=== PATIENT | female | born 1985 | race Caucasian/White ===

== ENCOUNTER → 2016-11-14 14:40 | Observation (INO) ==
[2016-11-14 13:55] LABS: Basophils % 0.1 %; Eosinophils % 0.4 %; Hemoglobin 11.8 g/dL (11.5-15.4); Immature Granulocytes % 0.3 % (0-4); Lymphocytes # 1.3 K/mcL (0.6-4.6); Lymphocytes % 18.5 %; Mean Corpuscular HGB Conc 32.8 g/dL (31.6-35.5); Mean Corpuscular Hemoglobin 26.2 pg (28.0-33.3); Mean Corpuscular Volume 79.8 fL (83.0-100.0); Mean Platelet Volume 12.1 fL (9.4-12.4); Monocytes # 0.5 K/mcL (0.0-1.3); Monocytes % 7.6 %; Neutrophils # 5.2 K/mcL (1.6-8.9); Platelet Count 140 K/mcL (140-400); Red Blood Count 4.51 M/mcL (3.82-4.97); Red Cell Distribution Width 13.2 % (11.5-14.5); Segmented Neutrophils % 73.1 %
--- NOTE | 2016-11-14 14:05 | OB/GYN Progress Note ---
Date of Encounter: 11/14/16 Time of Encounter: 14:01 - Assessment and Plan (1) 30 weeks gestation of Current Visit: Yes Status: Acute admitted for observation (2) Localized pruritus Current Visit: Yes Status: Acute No rash noted Bile acids and liver enzymes ordered Discussed patient with Dr. Lam (3) NST (non-stress test) reactive on surveillance Current Visit: Yes Status: Acute Baseline 135 bpm moderate variability +15x15 accels no decels noted. Subjective - Subjective Principal diagnosis: Itching Interval history: Patient is 31 y/o at 30w2d presents with c/o severe itching on hands an feet. Patient states she spoke to Dr. Willard and was told to come to labor and delivery for evaluation. Patient denies contractions, LOF, VB, rash headaches. Denies urinary symptoms. Patient reports +FM. Antepartum ROS: movement normal, no loss of fluid, no vaginal bleeding, no contractions Objective - Vital Signs Vital Signs: Intake and Output 11/13/16 11/14/16 11/14/16 23:59 07:59 15:59 Other: Weight 98.7 kg Patient Weight 11/14/16 23:59 Weight 98.7 kg - Exam FHR: auscultation normal, category 1 FHR comments: 135 bpm moderate variability +15x15 accels no decels noted. Auscultation: bilateral: normal Abdomen: Present: normal appearance, soft, gravid Comments: No rash noted on truck of body or extremities. Palms of hands appear red.
[2016-11-14 14:07] LABS: Alanine Aminotransferase 7 Units/L (0-55); Aspartate Amino Transferase 11 Units/L (5-34); BUN/Creatinine Ratio 7 (6-26); Lactate Dehydrogenase 148 Units/L (159-327); Uric Acid 1.9 mg/dL (2.6-6.0); eGFR For African Americans > 60 (> 60); eGFR For Non-African Americans > 60 (> 60)
[2016-11-14 14:08] LABS: Blood Urea Nitrogen 4 mg/dL (7-20)
--- NOTE | 2016-11-14 14:39 | Discharge Summary ---
Date of Encounter: 11/14/16 Time of Encounter: 14:36 - Discharge Diagnosis (1) 30 weeks gestation of Priority: Primary Status: Acute Comments: Observation (2) Localized pruritus Priority: Secondary Status: Acute (3) NST (non-stress test) reactive on surveillance Priority: Secondary Status: Acute - Discharge Medications Prescriptions: HydrOXYzine Pamoate [Vistaril] 50 mg PO HS #14 capsule Home Medications: HydrOXYzine Pamoate [Vistaril] 50 mg PO HS #14 capsule 11/14/16 [Rx] Allergies/Adverse Reactions: Allergies No Known Allergies Allergy (Verified 11/14/16 13:23) Data Procedures and tests throughout hospitalization: Laboratory Tests 11/14/16 11/14/16 13:30 13:30 WBC 7.2 RBC 4.51 Hgb 11.8 Hct 36.0 MCV 79.8 L MCH 26.2 L MCHC 32.8 RDW 13.2 Plt Count 140 MPV 12.1 Immature Gran % 0.3 Seg Neutrophils % 73.1 Lymphocytes % 18.5 Monocytes % 7.6 Eosinophils % 0.4 Basophils % 0.1 Neutrophils # 5.2 Lymphocytes # 1.3 Monocytes # 0.5 Eosinophils # 0.0 Basophils # 0.0 BUN 4 L Creatinine 0.59 Est GFR ( Amer) > 60 Est GFR (Non-Af Amer) > 60 BUN/Creatinine Ratio 7 Uric Acid 1.9 L AST 11 ALT 7 Lactate Dehydrogenase 148 L Labs on day of discharge: Labs from last 24 hours 11/14/16 11/14/16 13:30 13:30 WBC 7.2 RBC 4.51 Hgb 11.8 Hct 36.0 MCV 79.8 L MCH 26.2 L MCHC 32.8 RDW 13.2 Plt Count 140 MPV 12.1 Immature Gran % 0.3 Seg Neutrophils % 73.1 Lymphocytes % 18.5 Monocytes % 7.6 Eosinophils % 0.4 Basophils % 0.1 Neutrophils # 5.2 Lymphocytes # 1.3 Monocytes # 0.5 Eosinophils # 0.0 Basophils # 0.0 BUN 4 L Creatinine 0.59 Est GFR ( Amer) > 60 Est GFR (Non-Af Amer) > 60 BUN/Creatinine Ratio 7 Uric Acid 1.9 L AST 11 ALT 7 Lactate Dehydrogenase 148 L Date of admission: 11/14/16 13:06 Primary care physician: PCP NONE Discharging clinician: Razia Acuna Anticipated date of discharge: 11/14/16 - Patient Status Disposition: Home, Self-Care Condition: Good Functional capacity at discharge: independent ambulation - Discharge Instructions Follow Up With: NONE,PCP [Primary Care Provider] - Moises Willard DO [Partnered Physician] - - Diet and Activity Activity: increase activity as tolerated Diet: regular diet Hospital Course SPINNING FRAME FIXER Time Attestation: Total time spent providing and/or coordinating discharge services: Time Spent: Less than 30 minutes Exam - Constitutional General appearance IM: A&O X 3, pleasant, answers questions appropriately - Respiratory Respiratory exam: Present: CTAB - Cardiovascular Cardiovascular exam IM: Present: RRR, +S1, +S2 - GI/Abdominal GI/Abdominal exam IM: normal bowel sounds - Extremities Exam Extremities exam IM: Present: full ROM, normal capillary refill, normal inspection - Neurological Exam Neurological exam: alert, oriented X3, reflexes normal - VTE Reasons for not Prescribing Prophylaxis: Treatment not Indicated - Low risk for VTE
== END | disposition home or self-care (01) ==
LOC: 1NENULAB

== ENCOUNTER → 2016-12-05 13:16 | Observation (INO) ==
[2016-12-05 10:44] LABS: Bilirubin,Urine Negative (Negative); Blood,Urine Negative (Negative); Color,Urine Yellow (Yellow); Glucose,Urine (UA) Normal (Normal); Ketones,Urine Trace mg/dL (Negative); Leukocyte Esterase,Urine Negative (Negative); Nitrite,Urine Negative (Negative); Protein,Urine Negative (Neg-Trace); Specific Gravity,Urine 1.014 (1.010-1.025); Urobilinogen,Urine Normal (Normal)
[2016-12-05 10:45] LABS: Bacteria,Urine Few per hpf (None-Few); Hyaline Casts,Urine None Seen per lpf (None-Few); RBC,Urine 0-3 per hpf (0-3); Squamous Epithelial Cell,Urine Many per lpf (None-Few)
[2016-12-05 10:47] LABS: Clarity,Urine Slightly Hazy (Clear)
[2016-12-05 10:57] LABS: Amorphous Sediment,Urine Few (Few)
--- NOTE | 2016-12-05 11:07 | OB/GYN Progress Note ---
Date of Encounter: 12/05/16 Time of Encounter: 11:04 - Assessment and Plan (1) 33 weeks gestation of Current Visit: Yes Status: Acute admit for labor evaluation (2) LUQ abdominal pain Current Visit: Yes Status: Acute Subjective - Subjective Principal diagnosis: LUQ pain Interval history: Patient is 31 y/o at 33w2d presents to labor and delivery with complaints of LUQ pain that is constant, sharp and burning. Patient denies pain radiating any place. Patient denies contractions, LOF or VB. Patient denies fever, nausea or vomiting. Patient reports + FM. Patient reports nothing makes the pain go away or better. Antepartum ROS: movement normal, no loss of fluid, no vaginal bleeding, no contractions Objective - Exam FHR: auscultation normal, category 1 FHR comments: 135 bpm moderate variability +15x15 accels no decels noted. Cat. 1 tracing. Auscultation: bilateral: normal Abdomen: Present: normal appearance, soft, gravid Cervical dilation: closed Cervix effacement: thick station: -3 - Labs Labs: Abnormal lab results Urine Ketones Trace mg/dL (Negative) H 12/05/16 10:28 Ur Squamous Epith Cells Many per lpf (None-Few) H 12/05/16 10:28
--- NOTE | 2016-12-05 13:16 | Discharge Summary ---
Date of Encounter: 12/05/16 Time of Encounter: 13:16 - Discharge Diagnosis (1) 33 weeks gestation of Priority: Primary Status: Acute Comments: false labor (2) LUQ abdominal pain Priority: Secondary Status: Acute - Discharge Medications Home Medications: No Known Home Drugs 12/05/16 [History] Allergies/Adverse Reactions: 3 Allergy/AdvReac Type Severity Reaction Status Date / Time No Known Allergies Allergy Verified 11/14/16 13:23 Data Procedures and tests throughout hospitalization: Laboratory Tests 12/05/16 10:28 Urine Color Yellow Urine Clarity Slightly Hazy Urine pH 7.0 Ur Specific Lee 1.014 Urine Protein Negative Urine Glucose (UA) Normal Urine Ketones Trace H Urine Blood Negative Urine Nitrite Negative Urine Bilirubin Negative Urine Urobilinogen Normal Ur Leukocyte Esterase Negative Urine Microscopic RBC 0-3 Ur Squamous Epith Cells Many H Amorphous Sediment Few Urine Bacteria Few Hyaline Casts None Seen Ur Culture Indicated? NO Labs on day of discharge: Labs from last 24 hours 12/05/16 10:28 Urine Color Yellow Urine Clarity Slightly Hazy Urine pH 7.0 Ur Specific Lee 1.014 Urine Protein Negative Urine Glucose (UA) Normal Urine Ketones Trace H Urine Blood Negative Urine Nitrite Negative Urine Bilirubin Negative Urine Urobilinogen Normal Ur Leukocyte Esterase Negative Urine Microscopic RBC 0-3 Ur Squamous Epith Cells Many H Amorphous Sediment Few Urine Bacteria Few Hyaline Casts None Seen Ur Culture Indicated? NO Date of admission: 12/05/16 10:17 Primary care physician: PCP NONE Discharging clinician: Razia Acuna Anticipated date of discharge: 12/05/16 - Patient Status Disposition: Home, Self-Care Condition: Good Functional capacity at discharge: independent ambulation - Discharge Instructions Follow Up With: NONE,PCP [Primary Care Provider] - Moises Willard DO [Partnered Physician] - Additional Instructions: LABOR AND DELIVERY DISCHARGE INSTRUCTIONS Signs and Symptoms to be Reported to your Doctor Immediately: * Sudden gush, continuous or intermittent lead of fluid from vagina (note the time of gush and color of fluid) * Onset of bright red vaginal bleeding with or without pain (if you had a vaginal exam during this visit you may notice some dark red spotting. This is normal.) * Lower abdominal cramping or backache that is premenstrual-like feeling. * More than 6 contractions in one hour. * Burning during urination, having to urinate more frequently or pain in your mid-back. * A change in the baby's activity. This could be an increase or decrease in activity. * Severe headache which does not go away with tylenol. * Sudden swelling in the face, hands, arms and/or legs. * Upper abdominal pain - sometimes associated with heartburn or nausea and is not relieved by Maalox, Mylanta or Tums. * Dizziness or blurred vision or visual disturbances (seeing stars/lights). * Kick Counts One hour after a meal, lay down on one side in a quiet place. Count the number of damien the baby moves during an hour. If less than 6 movements, notify your physician. Diet: *Force fluids - 8-10 tall glasses of fluid per day. May include popsicles and jello. *Limit caffeine - this includes chocolate, coffee, tea, any soft drink containing such as all graciela, Bennie Yellow and Mountain Dew - Diet and Activity Activity: increase activity as tolerated Diet: regular diet Hospital Course SLATE WORKER Time Attestation: Total time spent providing and/or coordinating discharge services: Time Spent: Less than 30 minutes Exam - Constitutional General appearance IM: A&O X 3, pleasant, answers questions appropriately - Respiratory Respiratory exam: Present: CTAB - Cardiovascular Cardiovascular exam IM: Present: RRR, +S1, +S2 - VTE Reasons for not Prescribing Prophylaxis: Treatment not Indicated - Low risk for VTE
== END | disposition home or self-care (01) ==
LOC: 1NENULAB
PROVIDERS: ADMIT Advanced Practice Midwife; ATTEND Advanced Practice Midwife

== ENCOUNTER 2017-01-21 08:00 | Inpatient (IN) ==
[2017-01-21] MEDS ORDERED: Lidocaine 1% 20 ML MDV INFILT PRN (11:28)
[2017-01-21] MEDS ORDERED: Naloxone 0.4 MG/ML INJ IVP PRN (11:28)
[2017-01-21] MEDS ORDERED: *HR* Nalbuphine 20 MG/ML AMPUL IVP PRN (11:28)
[2017-01-21] MEDS ORDERED: Famotidine 20 MG/2 ML VIAL IVP PRN (11:28)
[2017-01-21] MEDS ORDERED: miSOPROStol 25 MCG TABLET VG PRN (11:28)
[2017-01-21] MEDS ORDERED: Ringers Solution, Lactated 1,000 ML IVC SCH (11:30)
[2017-01-21] MEDS ORDERED: Ringers Solution, Lactated 1,000 ML ONE (11:42)
--- NOTE | 2017-01-21 11:52 | OB/GYN History & Physical ---
Date of Encounter: 01/21/17 Time of Encounter: 11:40 Assessment and Plan (1) 40 weeks gestation of Current visit: Yes Status: Acute Patient will be admitted for a scheduled induction. - Cytotec - IV fluids History of Present Illness Chief complaint: Labor induction HPI: Ms. Celis is a 31 year old female at 40 wks gestation that presents for induction of labor for suspected macrosomia. Patient says that she feels good movement. She denies any vaginal fluid leakage or bleeding. She denies headaches, vision changes, nausea, vomiting, chest pain, fever, dysuria, or diarrhea. GBS: negative HepBsAb: non-reactive (07/10/16) HIV Ag/Ab: non-reactive T. pallidum: negative Rubella Ab: positive Varicella Ab: positive Blood type: A+ Past Med Surg Social Fam HX - Past Medical History Psychiatric history: no psych history - Social History Smoking Status: Former smoker Smokeless Tobacco Status: No Alcohol use: none Drug use: none - Family History Father Adopted: No Living Status: Still Living Hx Family Cardiac Disorders: No Hx Family Respiratory Disorders: No Hx Family Cancer: No Hx Family GI Disorders: No Hx Family Endocrine Disorder: Yes (diabetes) Hx Family Neuromuscular Disorders: No Hx Family Neurologic Disorders: No Hx Family HEENT Disorders: No Hx Family Autoimmune Disorders: No Obstetrical History - Pregnancies : 6 Para: 3 Term: 3 : 0 Ab's: 2 Livin Medications and Allergies No Known Home Drugs 12/05/16 [History] 3 Allergy/AdvReac Type Severity Reaction Status Date / Time No Known Allergies Allergy Verified 11/14/16 13:23 Exam - Constitutional Constitutional: well developed, well nourished, no acute distress, average body habitus - HEENT HEENT: PERRL, Mucus Membranes Moist - Lungs Respiratory exam: CTAB - Cardiovascular Cardiovascular exam: RRR, +S1, +S2 - Abdomen Abdomen: Present: bowel sounds normal, gravid, non tender - Extremities Extremities exam: full ROM, normal capillary refill, normal inspection, radial pulses palpable and symmetrical Deep Tendon Reflex Grade: 2+ Normal Results Result Diagrams: 01/21/17 12:01 All other labs normal. - VTE Reasons for not Prescribing Prophylaxis: Treatment not Indicated - Low risk for VTE - Attending Attestation I examined this patient and my medical decision-making was reviewed with the Resident Physician. I agree with the documented findings, disposition and treatment plan as described. Zaida Bender CNM
--- NOTE | 2017-01-21 13:08 | Anesthesia Evaluation PreOp ---
Date of Encounter: 01/21/17 Time of Encounter: 13:06 - Past History Planned Operation: vaginal del, induction Cardiac History: Denies any Significant Hx Pulmonary History: Denies Any Significant HX ARCHITECTURAL INTERN History: Other (mild scoliosis no radiculopathies no previous issues with epidurals in past.) Other Medical History: Thyroid (Graves, no current tx) Anesthesia History: No Prior Anesthetic Complications, Past Anesthesia Alcohol Use: none Drug use: none Medications and Allergies No Known Home Drugs 12/05/16 [History] 3 Allergy/AdvReac Type Severity Reaction Status Date / Time No Known Allergies Allergy Verified 11/14/16 13:23 Anesthesia Exam - HEENT Pupil (Motor): Pupils equal Mallampati: II Teeth: Normal Oral Opening: Greater than 3 - ARCHITECTURAL INTERN LOC: Oriented ARCHITECTURAL INTERN Motor: Normal RUE, Normal LUE, Normal RLE, Normal LLE, Normal Face ARCHITECTURAL INTERN Sensory: Normal: RUE, LUE, RLE, LLE, Face - Cardiac Rhythm: Regular Murmur: None - Pulmonary Breath Sounds: bilateral Clear Respiratory Effort: Symmetrical Anesthesia Assess/Plan ASA Score: 2 Modified [place] Scale for Level of Consciousness: Cooperative, oriented, and tranquil Anesthetic Plan: General, Regional Monitoring Plan: Standard Monitors
[2017-01-21 13:20] LABS: Basophils % 0.3 %; Eosinophils % 0.3 %; Hematocrit 35.3 % (35.3-44.9); Immature Granulocytes % 0.4 % (0-4); Lymphocytes # 1.3 K/mcL (0.6-4.6); Lymphocytes % 17.9 %; Mean Corpuscular HGB Conc 31.2 g/dL (31.6-35.5); Mean Corpuscular Volume 76.9 fL (83.0-100.0); Mean Platelet Volume 12.8 fL (9.4-12.4); Monocytes # 0.6 K/mcL (0.0-1.3); Monocytes % 7.6 %; Neutrophils # 5.3 K/mcL (1.6-8.9); Platelet Count 125 K/mcL (140-400); Red Blood Count 4.59 M/mcL (3.82-4.97); Red Cell Distribution Width 14.8 % (11.5-14.5); Segmented Neutrophils % 73.5 %
[2017-01-21 13:58] LABS: Amphetamine Screen,Urine Negative ng/mL (Cutoff=1000); Barbiturate Screen,Urine Negative ng/mL (Cutoff=200); Benzodiazepines Screen,Urine Negative ng/mL (Cutoff=200); Cannabinoid Screen,Urine Negative ng/mL (Cutoff = 50); Cocaine Screen,Urine Negative ng/mL (Cutoff= 300); Opiate Screen,Urine Negative ng/mL (Cutoff=300); Phencyclidine Screen,Urine Negative ng/mL (Cutoff=25)
[2017-01-21] MEDS ORDERED: Epidural Premix (fent/bupiv) 110 ML EP ONE (16:01)
--- NOTE | 2017-01-21 16:46 | OB Labor Progress Note ---
Date of Encounter: 01/21/17 Time of Encounter: 16:44 Labor Progress Note - Subjective Subjective: Patient resting comfortably in bed 4 hours after first dose of cytotec. - Vital Signs Vital Signs: VSS - Cervix Cervix: 1/thick/high anterior soft - Heart Tones Heart Tones: 130 with moderate variability and 15 x 15 accels. Category I tracing - [place]: Contractions palpate mild every 2-4 minutes lasting 45 seconds in length. - Interventions Interventions: Intracervical george balloon placed easily. Filled with 30 cc sterile water. Fetus and patient tolerated well. - Plan Plan: Continue routine labor management. IOL for LGA/suspected macrosomia. GBS negative Patient may have nubain/epidural upon request Consider pitocin if needed for adequate contraction pattern. Anticipate vaginal delivery POC per consult with Dr Geiger.
--- NOTE | 2017-01-21 21:00 | Anesthesia Procedures ---
Date of Encounter: 01/21/17 Time of Encounter: 20:41 Procedures: Anesthesia - Epidural/Spinal Patient ID/Chart reviewed: Yes Patient examined: Yes OB Eval: Gestational age: term OB Eval: : 6 OB Eval: Hx Para: 3 OB Eval: Dilated at (cm): 2 OB Eval: Contractions: Non-stressed pattern Consent Obtained: Yes Supplemental Oxygen: None/Room Air Site Prep: Aseptic Technique, Sterile prep and drape, 0.5% Chlorhexidine/Alcohol Patient position: upright Local Anesthetic: Lidocaine 1% Amount of Local Anesthetic used: 2 Touhy Needle Gauge: 18 Touhy Needle Depth (cm): 7 Catheter Depth at Skin (cm): 11 Test Dose (1.5% Lido + Epi): Volume given (mls): 3 Test Dose Result: Negative Loading Dose: Other: 12ml from solution Loading Dose Administered: Thru Catheter Infusion Med: 0.125% Bupivacaine w/ 2 mcg/ml Fentanyl Infusion Rate (mls/hr): 15 Interspace Used: L3-L4 Loss of Resistance (CLEMENT): Yes (saline) Blood: No CSF: No Paresthesia: No Procedure: vss though out, FHR stable per RN;s
[2017-01-21] MEDS ORDERED: Oxytocin 20 units/ LR 1000 mL 20 UNIT/1,000 ML BAG IVC SCH (21:15)
[2017-01-21] MEDS ORDERED: Ondansetron 4 MG/2 ML VIAL IVP PRN (22:39)
--- NOTE | 2017-01-22 01:15 | OB Labor Progress Note ---
Date of Encounter: 01/22/17 Time of Encounter: 01:14 Labor Progress Note - Subjective Subjective: Pt comfortable with epidural - Cervix Cervix: 3-4/70/-2 - Heart Tones Heart Tones: RNST - Interventions Interventions: AROM clear - Plan Plan: Expect
[2017-01-22] MEDS ORDERED: Epidural Premix (fent/bupiv) 110 ML EP ONE (03:58)
[2017-01-22] MEDS ORDERED: Acetaminophen 325 MG TABLET PO ONE (04:06)
[2017-01-22] MEDS ORDERED: ROPIVACAINE HCL/PF 0.5% 30 ML VIAL ONE (05:02)
--- NOTE | 2017-01-22 10:20 | OB/GYN Procedure Note ---
Delivery - Delivery Date: 01/22/17 Provider: Xochitl Chapman Intrapartum events: none Delivery induction: AROM, oxytocin Delivery monitor: external FHT, external uterine, internal uterine Anesthesia: epidural Estimated Blood Loss: 250 - (s) Infant A Infant Delivery Date: 01/22/17 Infant Delivery Time: 09:52 Presentation: vertex Position: DELONTE Route of delivery: Gender: Male Viability: Viable Pounds: 9 Ounces: 4 Weight Gram: 4.195 kg at 1 minute: 8 at 5 mins: 9 Shoulder Dystocia: encountered Shoulder Dystocia Maneuvers: Neva maneuver, suprapubic pressure Placenta: spontaneous Cord: nuchal cord, 3 umbilical vessels, nuchal cut - Repair Episiotomy: none - Complications Delivery complications: none Delivery comments: Called to room with patient complete and 0 station. Under maternal effort she delivered a viable male weighing 9 lbs. 4 oz. and Apgars 8 and 9 at one and 5 minutes respectively over an intact perineum. Following delivery of the head tight nuchal cord was noted and clamped and cut. With maternal effort the shoulder did not deliver. Patient was placed in Neva and suprapubic pressure was applied with resolution of the shoulder dystocia. No fundal pressure was applied. was placed on mom's abdomen and taken to the warmer. Placenta delivered spontaneously, complete, and intact with a three- vessel cord. There were no vaginal, cervical, or labial lacerations noted. Mother and are recovering in the LDR in stable condition. - Disposition Mom disposition: stable in LDR disposition: stable in LDR
[2017-01-22] MEDS ORDERED: Oxytocin 20 units/ LR 1000 mL 20 UNIT/1,000 ML BAG IVC SCH (12:59)
[2017-01-22] MEDS ORDERED: Lanolin 7 G OINT...G. TP PRN (12:59)
[2017-01-22] MEDS ORDERED: Benzocaine/Menthol 56 GM AEROSOL SPRAY TP PRN (12:59)
[2017-01-22] MEDS ORDERED: Acetaminophen 325 MG TABLET PO PRN (12:59)
[2017-01-22] MEDS: Ibuprofen 600 MG TABLET PO PRN ×2 (17:06→23:39)
[2017-01-23 04:52] LABS: Basophils % 0.3 %; Eosinophils # 0.1 K/mcL (0.0-0.6); Eosinophils % 0.7 %; Hematocrit 27.5 % (35.3-44.9); Immature Granulocytes % 0.5 % (0-4); Lymphocytes # 1.7 K/mcL (0.6-4.6); Lymphocytes % 16.4 %; Mean Corpuscular HGB Conc 30.5 g/dL (31.6-35.5); Mean Corpuscular Hemoglobin 23.7 pg (28.0-33.3); Mean Corpuscular Volume 77.5 fL (83.0-100.0); Mean Platelet Volume 13.4 fL (9.4-12.4); Monocytes # 0.7 K/mcL (0.0-1.3); Monocytes % 7.2 %; Neutrophils # 7.6 K/mcL (1.6-8.9); Platelet Count 104 K/mcL (140-400); Red Blood Count 3.55 M/mcL (3.82-4.97); Red Cell Distribution Width 15.2 % (11.5-14.5); Segmented Neutrophils % 74.9 %
[2017-01-23 04:53] LABS: Hemoglobin 8.4 g/dL (11.5-15.4)
[2017-01-23] MEDS ORDERED: Ringers Solution, Lactated 1,000 ML ONE (08:44)
[2017-01-23] MEDS ORDERED: Prenatal Vit/FA 1 EACH TABLET PO SCH (09:00)
[2017-01-23] MEDS ORDERED: Ondansetron 4 MG/2 ML VIAL IVP PRN (09:10)
[2017-01-23] MEDS ORDERED: *HR* HYDROmorphone (PF) 1 MG/ML SYRINGE IVP PRN (09:10)
--- NOTE | 2017-01-23 09:10 | Anesthesia Evaluation PreOp ---
Date of Encounter: 01/23/17 Time of Encounter: 09:07 - Past History Planned Operation: BPS Cardiac History: Denies any Significant Hx Pulmonary History: Denies Any Significant HX MANGLE FEEDER History: Denies Any Significant HX Other Medical History: Thyroid (graves), GERD Anesthesia History: No Prior Anesthetic Complications, Past Anesthesia (sarah, D&C ) : No Test: Negative Alcohol Use: none Drug use: none Medications and Allergies No Known Home Drugs 12/05/16 [History] 3 Allergy/AdvReac Type Severity Reaction Status Date / Time No Known Allergies Allergy Verified 11/14/16 13:23 - Meds/Allergy Pre-op Review Medications Reviewed: Yes Allergies Reviewed: Yes Beta Blockers on Current Med List: No Anesthesia Results - Labs 01/23/17 04:26 Anesthesia Exam Vital Signs/O2 Sat, Most Current Temp Pulse Resp BP Pulse Ox 97.6 F 79 14 102/61 95 01/23/17 04:01 01/23/17 04:01 01/23/17 04:01 01/23/17 04:01 01/22/17 13:02 Height: 5'6" Weight: 200 NPO (# of Hours): 8 Pain Scale: 1 Pain Scale Used: Numeric (1 - 10) - HEENT Pupil (Motor): Pupils equal Mallampati: II Teeth: Normal Oral Opening: Greater than 3 - MANGLE FEEDER LOC: Oriented MANGLE FEEDER Motor: Normal RUE, Normal LUE, Normal RLE, Normal LLE, Normal Face MANGLE FEEDER Sensory: Normal: RUE, LUE, RLE, LLE, Face - Cardiac Rhythm: Regular Murmur: None - Pulmonary Breath Sounds: bilateral Clear Respiratory Effort: Symmetrical Anesthesia Assess/Plan ASA Score: 2 Modified [place] Scale for Level of Consciousness: Cooperative, oriented, and tranquil Anesthetic Plan: General Autologous Blood: No Monitoring Plan: Standard Monitors Recovery Plan: PACU (risks discussed, questions answered, consented)
[2017-01-23] MEDS ORDERED: *HR* Propofol 200 MG/20 ML VIAL IVP ONE ×2 (09:14→09:45)
[2017-01-23] MEDS ORDERED: *HR* FentaNYL (PF) 100 MCG/2 ML VIAL ONE ×2 (09:14→09:53)
[2017-01-23] MEDS ORDERED: *HR* Succinylcholine 200 MG/10 ML VIAL IVP ONE (09:15)
[2017-01-23] MEDS ORDERED: Dexamethasone 4 MG/ML VIAL ONE (09:15)
[2017-01-23] MEDS ORDERED: Ondansetron 4 MG/2 ML VIAL ONE (09:15)
[2017-01-23] MEDS ORDERED: Lidocaine -MPF 2% 5 ML VIAL ONE (09:15)
[2017-01-23] MEDS ORDERED: Ketorolac 30 MG/ML VIAL ONE (09:21)
[2017-01-23] MEDS ORDERED: Lidocaine 1% 20 ML MDV ONE (09:37)
[2017-01-23] MEDS ORDERED: *HR* HYDROcodone/Acet 5/325 mg TABLET PO ONE (10:32)
--- NOTE | 2017-01-23 17:40 | OB/GYN Procedure Note ---
OB-DOCK GUARD: Procedure - Diagnosis Date of procedure: 01/23/17 Pre-op diagnosis: Undesired fertility Post-op diagnosis: same - Procedure Procedure: Bilateral partial salpingectomy Surgeon: Marques Pritchard Anesthesia provider: Jovany Mcneil Anesthesia Type: General Estimated blood loss (cc): 10 Fluids: crystalloid Procedure Complications: None Specimens collected: Bilateral partial fallopian tubes Disposition: PACU Findings: Tubes appeared normal on either side. Narrative: Patient was taken to the operating room. After satisfactory anesthesia was achieved, patient placed in supine position and prepped and draped in usual manner. After appropriate timeout, the skin was injected with 1% local. Infraumbilical incision was made and the abdomen was entered without difficulty. Fallopian tubes were identified on either side. They were followed out to the fimbrial ends. Clamps were placed on the distal end of the tube . These were removed and sent to pathology for analysis. After assurance of hemostasis, the abdomen was closed in a fashion using 2-0 Vicryl on the fascia and 3-0 Monocryl on skin. Sterile dressing was applied. Patient did well was taken to recovery in satisfactory condition. Counts were correct.
[2017-01-23] MEDS: Ibuprofen 600 MG TABLET PO PRN (19:07)
[2017-01-24 08:31] VITALS: BP 110/69
--- NOTE | 2017-01-24 09:24 | Discharge Summary ---
Date of Encounter: 01/24/17 Time of Encounter: 09:21 - Discharge Diagnosis (1) Vaginal delivery Priority: Primary Status: Acute Comments: Patient doing well s/p vaginal delivery day 2. Pain is well controlled with pain medication as ordered VSS Lochia is light and without clots. Voiding and passing flatus without difficulty Tolerating regular diet Will discharge today (2) S/P tubal ligation Priority: Primary Status: Acute Comments: Pain well controlled with medication as ordered. (3) Anemia complicating the puerperium Priority: Secondary Status: Acute Comments: VSS, asymptomatic Will discharge home with PO ferrous sulfate - Discharge Medications Prescriptions: Ibuprofen [Motrin] 600 mg PO Q6HR PRN #30 tablet PRN Reason: Cramping Breast Pump [BREAST PUMP] 1 each .ROUTE AD #1 each Docusate [Colace] 100 mg PO BID PRN #20 capsule PRN Reason: Constipation Ferrous Sulfate 325 mg PO DAILY #60 tablet Home Medications: Benzocaine/Menthol [place] [Dermoplast [place]] 1 appl TP QID PRN aerosol 01/24/17 [Rx] Breast Pump [BREAST PUMP] 1 each .ROUTE AD #1 each 01/24/17 [Rx] Docusate [Colace] 100 mg PO BID PRN #20 capsule 01/24/17 [Rx] Ferrous Sulfate 325 mg PO DAILY #60 tablet 01/24/17 [Rx] Ibuprofen [Motrin] 600 mg PO Q6HR PRN #30 tablet 01/24/17 [Rx] Lanolin [Lansinoh] 1 appl TP QID PRN oint...g. 01/24/17 [Rx] Vit/FA 1 each PO DAILY tablet 01/24/17 [Rx] Allergies/Adverse Reactions: 3 Allergy/AdvReac Type Severity Reaction Status Date / Time No Known Allergies Allergy Verified 11/14/16 13:23 Data Procedures and tests throughout hospitalization: Laboratory Tests 01/21/17 01/21/17 01/23/17 12:01 12:01 04:26 WBC 7.2 10.1 RBC 4.59 3.55 L Hgb 11.0 L 8.4 L D Hct 35.3 27.5 L MCV 76.9 L 77.5 L MCH 24.0 L 23.7 L MCHC 31.2 L 30.5 L RDW 14.8 H 15.2 H Plt Count 125 L 104 L MPV 12.8 H 13.4 H Immature Gran % 0.4 0.5 Seg Neutrophils % 73.5 74.9 Lymphocytes % 17.9 16.4 Monocytes % 7.6 7.2 Eosinophils % 0.3 0.7 Basophils % 0.3 0.3 Neutrophils # 5.3 7.6 Lymphocytes # 1.3 1.7 Monocytes # 0.6 0.7 Eosinophils # 0.0 0.1 Basophils # 0.0 0.0 Urine Opiates Screen Negative Ur Barbiturates Screen Negative Ur Phencyclidine Scrn Negative Ur Amphetamines Screen Negative U Benzodiazepines Scrn Negative Urine Cocaine Screen Negative U Marijuana (THC) Screen Negative Date of admission: 01/21/17 10:58 Primary care physician: PCP NONE Consults: 01/22/17 12:59 Consult to Field Consultant [CONS] Routine Comment: Vaginal delivery, consult needed Discharging clinician: Leny Bender Anticipated date of discharge: 01/24/17 - Patient Status Disposition: Home, Self-Care Condition: Good Functional capacity at discharge: independent ambulation Overall status at discharge: patient is back to baseline - Discharge Instructions Follow Up With: NONE,PCP [Primary Care Provider] - Moises Willard DO [Partnered Physician] - - Diet and Activity Activity: increase activity as tolerated Diet: regular diet Hospital Course Reason for admission: IUP at term Delivery: Episiotomy: none Other procedures: tubal ligation complications: none Discharge diagnosis: IUP at term delivered [place] baby: male Time Attestation: Total time spent providing and/or coordinating discharge services: Time Spent: Less than 30 minutes Exam - Constitutional Vitals: Temp Pulse Resp BP Pulse Ox 98.3 F 71 16 110/69 98 01/24/17 07:40 01/24/17 07:40 01/24/17 07:40 01/24/17 07:40 01/23/17 20:00 General appearance IM: cooperative, A&O X 3, pleasant - Respiratory Respiratory exam: Present: CTAB - Cardiovascular Cardiovascular exam IM: Present: RRR, +S1, +S2 - GI/Abdominal GI/Abdominal exam IM: normal bowel sounds, soft Incision: normal, dry, intact - Rectal Rectal exam: deferred - Uterine Tone: Firm Uterus Position: At Umbilicus, Midline - Extremities Exam Extremities exam IM: Present: normal capillary refill, normal inspection, radial pulses palpable and symmetrical - Neurological Exam Neurological exam: alert, oriented X3
[2017-01-24] MEDS: Ibuprofen 600 MG TABLET PO PRN (10:18)
== END 2017-01-24 12:00 | disposition home or self-care (01) | DRG 767 ==
LOC: 1NENULAB 10:58 → 1NENUOBS 01-22 12:58
PROVIDERS: ADMIT Obstetrics & Gynecology; ATTEND Obstetrics & Gynecology